=== PATIENT | male | born 1955 | race African-American/Black ===

== ENCOUNTER 2016-10-19 10:13 | Inpatient (IN) | payer MEDICAID ==
[~2016-10-19] VITALS: Ht 180.3 cm; Wt 92.1 kg
[2016-10-19] MEDS ORDERED: MORPHINE SULFATE 4 MG/ML CPJ (NOT FOR IM USE) IV STA (11:33)
[2016-10-19] MEDS ORDERED: ASPIRIN 81MG TABLET PO STA (11:33)
[2016-10-19] MEDS ORDERED: NITROGLYCERIN OINT 1GM/INCH UDPKT TD STA (11:33)
[2016-10-19 12:03] LABS: CHLORIDE 107 mEq/L (98-107)
[2016-10-19 12:06] LABS: BASOPHILS % 0.2 % (0.0-2.0); EOSINOPHILS % 0.2 % (0.0-5.0); HEMATOCRIT. 38.8 % (42.0-52.0); HEMOGLOBIN. 12.8 g/dL (14.0-18.0); LYMPHOCYTES % 8.4 % (20.0-50.0); MEAN CORPUSCULAR HEMOGLOBIN 28.6 pg (28.0-32.0); MEAN CORPUSCULAR VOLUME 86.8 fL (80.0-94.0); MEAN PLATELET VOLUME 7.9 fl (7.4-10.4); MONOCYTES % 8.4 % (2.0-8.0); NEUTROPHILS % 82.8 % (40.0-76.0); PLATELET 173 x1000/uL (130-400); RED BLOOD CELL COUNT 4.47 mill/uL (4.7-6.1); RED CELL DISTRIBUTION WIDTH 14.5 % (11.6-14.6)
[2016-10-19 12:08] LABS: INR 1.2; PARTIAL THROMBOPLASTIN TIME 29.4 sec (24.0-34.0)
[2016-10-19 12:13] LABS: CARBON DIOXIDE 25 mEq/L (21-32); TROPONIN I 0.07 ng/mL (0.00-0.04)
[2016-10-19] MEDS ORDERED: ONDANSETRON HCL 4MG/2ML VIAL IV PRN (16:15)
[2016-10-19] MEDS ORDERED: CLONIDINE 0.1MG TABLET PO PRN (16:15)
[2016-10-19] MEDS ORDERED: DIPHENHYDRAMINE 50MG/ML VIAL IV PRN (16:15)
[2016-10-19] MEDS ORDERED: ACETAMINOPHEN 325MG TABLET PO PRN (16:15)
[2016-10-19] MEDS ORDERED: IPRATROPIUM/ALBUTEROL 0.5-3(2.5)MG/3ML NEB INH PRN (16:15)
[2016-10-19 17:18] LABS: CLARITY URINE TURBID (CLEAR); COLOR URINE YELLOW (YELLOW); KETONES URINE TRACE (NEGATIVE); LEUKOCYTE ESTERASE URINE NEGATIVE (NEGATIVE); NITRITE URINE NEGATIVE (NEGATIVE); OCCULT BLOOD URINE 2+ (NEGATIVE); PROTEIN URINE 2+ (NEGATIVE); UROBILINOGEN URINE 0.2 E.U./dL (0.2-1.0)
[2016-10-19 17:53] LABS: *AMPHETAMINES SCREEN URINE NEGATIVE (NEGATIVE); *BARBITURATES SCREEN URINE NEGATIVE (NEGATIVE); *BENZODIAZEPINES SCREEN URINE NEGATIVE (NEGATIVE); *COCAINE SCREEN URINE NEGATIVE (NEGATIVE); CANNABINOID URINE SCREEN NEGATIVE (NEGATIVE); METHADONE URINE SCREEN NEGATIVE (NEGATIVE); OPIATES URINE SCREEN PRESUMTIVE POSITIVE (NEGATIVE); PHENCYCLIDINE URINE SCREEN NEGATIVE (NEGATIVE)
[2016-10-19] MEDS: HYDROCODONE/ACETAMINOPHEN 5/325MG TABLET PO PRN (21:21)
[2016-10-19] MEDS ORDERED: ABIL10 PO (23:46)
[2016-10-20] MEDS: HYDROCODONE/ACETAMINOPHEN 5/325MG TABLET PO PRN ×3 (03:34→15:09)
[2016-10-20 06:48] LABS: BASOPHILS % 0.2 % (0.0-2.0); HEMATOCRIT. 37.6 % (42.0-52.0); HEMOGLOBIN. 12.4 g/dL (14.0-18.0); LYMPHOCYTES % 10.6 % (20.0-50.0); MEAN CORPUSCULAR HEMOGLOBIN 28.3 pg (28.0-32.0); MEAN CORPUSCULAR VOLUME 85.7 fL (80.0-94.0); MEAN PLATELET VOLUME 8.2 fl (7.4-10.4); MONOCYTES % 11.4 % (2.0-8.0); NEUTROPHILS % 77.8 % (40.0-76.0); PLATELET 143 x1000/uL (130-400); RED BLOOD CELL COUNT 4.39 mill/uL (4.7-6.1); RED CELL DISTRIBUTION WIDTH 14.8 % (11.6-14.6)
[2016-10-20 07:05] LABS: CHLORIDE 103 mEq/L (98-107)
[2016-10-20 07:38] LABS: CARBON DIOXIDE 22 mEq/L (21-32); HDL CHOLESTEROL 75 mg/dL (40-59); LDL CHOLESTEROL 65 mg/dL (5-100)
[2016-10-20] MEDS ORDERED: ARIPIPRAZOLE 10MG TABLET PO SCH (09:00)
[2016-10-20] MEDS ORDERED: SODIUM CHLORIDE 0.45% 1,000 ML IV SCH (10:30)
[2016-10-20] MEDS ORDERED: METOPROLOL TARTRATE 50MG TABLET PO SCH (10:30)
[2016-10-20] MEDS ORDERED: IOHEXOL-350 100 ML BOTTLE ONE (11:24)
[2016-10-20] MEDS ORDERED: SODIUM CHLORIDE 0.9% 10ML VIAL ONE (11:24)
[2016-10-20] MEDS ORDERED: ESMOLOL IV PRN (17:15)
[2016-10-20 18:00] VITALS: BP 109/70
== END 2016-10-20 18:30 | disposition short-term general hospital (02) | DRG 197 ==
LOC: ER 10:19 → ENRESERV 19:42 → 7WST 22:35 → CVICU 10-20 14:39
PROVIDERS: ADMIT Internal Medicine; ATTEND Internal Medicine
DX: I71.00 Dissection of unspecified site of aorta (principal); N17.9 Acute kidney failure, unspecified; E44.1 Mild protein-calorie malnutrition; I12.9 Hypertensive chronic kidney disease with stage 1 through stage 4 chronic kidney disease, or unspecified chronic kidney disease; D64.9 Anemia, unspecified; D72.829 Elevated white blood cell count, unspecified; F17.210 Nicotine dependence, cigarettes, uncomplicated; I35.1 Nonrheumatic aortic (valve) insufficiency; N18.9 Chronic kidney disease, unspecified; Z82.49 Family history of ischemic heart disease and other diseases of the circulatory system; Z71.6 Tobacco abuse counseling; Z79.899 Other long term (current) drug therapy
CPT/HCPCS: 36415; 71010; 71275; 80053; 80061; 80305; 81001; 83036; 83690; 84484; 85025; 85610; 85730; 87040; 87086; 93005; 93306; 96374; 99285; A4216; C1893; J2270; J7030; J7040; Q9967

== ENCOUNTER 2016-12-10 18:55 | Inpatient (IN) | payer MEDICAID ==
[~2016-12-10] VITALS: Ht 180.3 cm; Wt 74.4 kg
[~2016-12-10 18:55] MED LIST: ABIL10 PO
[2016-12-10] MEDS ORDERED: ASPIRIN 81MG TABLET PO ONE (19:30)
[2016-12-10 19:40] LABS: BASOPHILS % 0.6 % (0.0-2.0); EOSINOPHILS % 0.8 % (0.0-5.0); HEMATOCRIT. 34.8 % (42.0-52.0); HEMOGLOBIN. 11.6 g/dL (14.0-18.0); MEAN CORPUSCULAR HEMOGLOBIN 28.1 pg (28.0-32.0); MEAN PLATELET VOLUME 7.7 fl (7.4-10.4); MONOCYTES % 9.1 % (2.0-8.0); NEUTROPHILS % 67.5 % (40.0-76.0); PLATELET 339 x1000/uL (130-400); RED BLOOD CELL COUNT 4.14 mill/uL (4.7-6.1)
[2016-12-10 19:46] LABS: INR 1.1; PROTHROMBIN TIME 11.5 sec (9.4-11.6)
[2016-12-10 19:50] LABS: CARBON DIOXIDE 26 mEq/L (21-32); CHLORIDE 98 mEq/L (98-107)
[2016-12-11 00:15] VITALS: BP 111/66
[2016-12-11] MEDS ORDERED: MORPHINE SULFATE 4 MG/ML CPJ (NOT FOR IM USE) IV PRN (02:30)
[2016-12-11 04:00] VITALS: BP 98/64
[2016-12-11 06:25] LABS: BASOPHILS % 0.5 % (0.0-2.0); EOSINOPHILS % 0.6 % (0.0-5.0); HEMATOCRIT. 34.2 % (42.0-52.0); HEMOGLOBIN. 11.3 g/dL (14.0-18.0); LYMPHOCYTES % 25.3 % (20.0-50.0); MEAN CORPUSCULAR HEMOGLOBIN 28.1 pg (28.0-32.0); MEAN CORPUSCULAR VOLUME 84.7 fL (80.0-94.0); MEAN PLATELET VOLUME 7.9 fl (7.4-10.4); MONOCYTES % 10.6 % (2.0-8.0); PLATELET 329 x1000/uL (130-400); RED BLOOD CELL COUNT 4.04 mill/uL (4.7-6.1); RED CELL DISTRIBUTION WIDTH 16.2 % (11.6-14.6)
[2016-12-11 06:36] LABS: CREATINE KINASE MB FRACTION 0.6 ng/mL (0.5-3.6); TROPONIN I 0.09 ng/mL (0.00-0.04)
[2016-12-11 08:00] VITALS: BP 103/66
[2016-12-11] MEDS: METOPROLOL TARTRATE 25MG TABLET PO SCH ×2 (08:58→20:50)
[2016-12-11] MEDS: ARIPIPRAZOLE 10MG TABLET PO SCH (08:59)
[2016-12-11] MEDS: ASPIRIN 325MG EC TABLET PO SCH (08:59)
[2016-12-11] MEDS: ENOXAPARIN 40MG/0.4ML SYR SUBCUT SCH (09:00)
[2016-12-11] MEDS ORDERED: ISOSORBIDE MONONITRATE 30MG TABLET SR 24HR PO SCH (09:00)
[2016-12-11 12:00] VITALS: BP 101/70
[2016-12-11 13:33] LABS: TROPONIN I 0.09 ng/mL (0.00-0.04)
[2016-12-11 16:00] VITALS: BP 108/70
[2016-12-11] MEDS: LORAZEPAM 1MG TABLET PO PRN (18:38)
[2016-12-11 20:00] VITALS: BP 92/63
[2016-12-12] VITALS: BP 95/58
[2016-12-12 04:00] VITALS: BP 101/64
[2016-12-12 06:52] LABS: HEMATOCRIT 33.4 % (42.0-52.0); HEMOGLOBIN 11.1 g/dL (14.0-18.0); MEAN CORPUSCULAR HEMOGLOBIN 28.1 pg (28.0-32.0); MEAN CORPUSCULAR VOLUME 84.2 fL (80.0-94.0); PLATELET 308 x1000/uL (130-400); RED BLOOD CELL COUNT 3.97 mill/uL (4.7-6.1); RED CELL DISTRIBUTION WIDTH 15.7 % (11.6-14.6)
[2016-12-12 07:02] LABS: CHLORIDE 96 mEq/L (98-107)
[2016-12-12 07:35] LABS: CARBON DIOXIDE 28 mEq/L (21-32)
[2016-12-12 08:00] VITALS: BP 98/63
[2016-12-12] MEDS: ASPIRIN 325MG EC TABLET PO SCH (08:25)
[2016-12-12] MEDS: ENOXAPARIN 40MG/0.4ML SYR SUBCUT SCH (08:25)
[2016-12-12] MEDS: ARIPIPRAZOLE 10MG TABLET PO SCH (08:25)
[2016-12-12] MEDS ORDERED: POTASSIUM CHLORIDE 20MEQ TABLET SR PO NR (09:30)
[2016-12-12] MEDS ORDERED: HYDROCODONE/ACETAMINOPHEN 5/325MG TABLET PO PRN (09:45)
[2016-12-12 11:36] VITALS: BP 108/70
[2016-12-12] MEDS ORDERED: MORPHINE SULFATE 2 MG/ML CPJ (NOT FOR IM USE) IV PRN (13:41)
[2016-12-12 16:00] VITALS: BP 105/65
[2016-12-12] MEDS: DEXT 5%/0.45% NACL 1000ML 1,000 ML IV SCH (18:12)
[2016-12-12 20:00] VITALS: BP 105/69
[2016-12-12] MEDS: METOPROLOL TARTRATE 25MG TABLET PO SCH (20:49)
[2016-12-12 22:52] LABS: *AMPHETAMINES SCREEN URINE NEGATIVE (NEGATIVE); *BARBITURATES SCREEN URINE NEGATIVE (NEGATIVE); *BENZODIAZEPINES SCREEN URINE NEGATIVE (NEGATIVE); *COCAINE SCREEN URINE NEGATIVE (NEGATIVE); CANNABINOID URINE SCREEN NEGATIVE (NEGATIVE); METHADONE URINE SCREEN NEGATIVE (NEGATIVE); OPIATES URINE SCREEN NEGATIVE (NEGATIVE); PHENCYCLIDINE URINE SCREEN NEGATIVE (NEGATIVE)
[2016-12-13] VITALS: BP 101/57
[2016-12-13] MEDS ORDERED: ONDANSETRON HCL 4MG/2ML VIAL IV PRN (01:30)
[2016-12-13 04:00] VITALS: BP 116/73
[2016-12-13] MEDS: LORAZEPAM 1MG TABLET PO PRN (05:41)
[2016-12-13] MEDS: DEXT 5%/0.45% NACL 1000ML 1,000 ML IV SCH (05:42)
[2016-12-13 08:00] VITALS: BP 100/67
[2016-12-13] MEDS: ASPIRIN 325MG EC TABLET PO SCH (08:49)
[2016-12-13] MEDS: ARIPIPRAZOLE 10MG TABLET PO SCH (08:49)
[2016-12-13] MEDS: ENOXAPARIN 40MG/0.4ML SYR SUBCUT SCH (08:49)
[2016-12-13] MEDS: METOPROLOL TARTRATE 25MG TABLET PO SCH (08:49)
[2016-12-13 12:00] VITALS: BP 96/57
[2016-12-13] MEDS ORDERED: IOHEXOL-350 100 ML BOTTLE ONE (12:24)
[2016-12-13] MEDS ORDERED: SODIUM CHLORIDE 0.9% 10ML VIAL ONE (12:24)
== END 2016-12-13 14:01 | disposition home or self-care (01) | DRG 198 ==
LOC: ER 19:33 → 7WST 21:23 → ENRESERV 22:11
PROVIDERS: ADMIT Internal Medicine; ATTEND Internal Medicine
DX: I25.10 Atherosclerotic heart disease of native coronary artery without angina pectoris (principal); I71.00 Dissection of unspecified site of aorta; N17.0 Acute kidney failure with tubular necrosis; I10 Essential (primary) hypertension; F17.210 Nicotine dependence, cigarettes, uncomplicated; Z95.1 Presence of aortocoronary bypass graft; F41.9 Anxiety disorder, unspecified; E03.9 Hypothyroidism, unspecified; D63.8 Anemia in other chronic diseases classified elsewhere; E44.1 Mild protein-calorie malnutrition
CPT/HCPCS: 36415; 71010; 71275; 74174; 80048; 80053; 80061; 80305; 82550; 82553; 83036; 83880; 84484; 85025; 85027; 85610; 93005; 99285; A4216; J1650; J2405; J3490; Q9967